=== PATIENT | female | born 1990 | race African-American/Black ===

== ENCOUNTER 2016-11-01 17:05 | Emergency (ER) ==
[2016-11-01 17:51] LABS: URINE SOURCE CLEAN CATCH
[2016-11-01 18:03] LABS: BILIRUBIN URINE NEGATIVE (NEGATIVE); BLOOD URINE NEGATIVE (NEGATIVE); CLARITY CLEAR (CLEAR); COLOR YELLOW; GLUCOSE URINE NEGATIVE (NEGATIVE); LEUKOCYTES URINE 1+ (NEGATIVE); NITRITE URINE NEGATIVE (NEGATIVE); PH URINE 6.5; PROTEIN URINE TRACE mg/dL (NEGATIVE); SP GRAVITY URINE 1.025; UROBILINOGEN URINE 1+(1 mg/dL)
--- NOTE | 2016-11-01 18:10 | PROVIDER DOCUMENTATION ---
HPI-Female /OB/Breast - General Source: reports: patient - History of Present Illness-Female /OB Does patient report she is ?: Yes Location of complaint: reports: other (pelvic) Radiation: reports: back Quality of Pain: reports: aching Onset/Duration: reports: other (1 month) Timing: reports: still present Context/Activities at Onset: reports: none Related Symptoms: reports: pelvic pain, other (lower back pain) Associated Symptoms: reports: nausea Similar Symptoms Previously?: Yes Recently seen or treated by another doctor?: No - LMP/ History Menstrual Status: currently : 3 Para: 2 : 0 <Helena Maldonado - Last Filed: 11/01/16 20:55> <Che Thompson - Last Filed: 11/02/16 06:57> - General Chief Complaint: Abdominal Pain Stated Complaint: 15 WKS PREG/ABD PAIN Time Seen by Provider: 11/01/16 17:54 Allergies/Adverse Reactions: Patient Allergies Allergy/AdvReac Type Severity Reaction Status Date / Time Penicillins Allergy Severe SHORTNESS Verified 09/25/16 19:37 OF BREATH Home Medications: Home Medication List Medication Instructions Recorded Confirmed Last Taken Type Ondansetron [Zofran] 8 mg PO DAILY 10/28/14 10/28/14 10/28/14 History Ondansetron Odt [Zofran 8Mg Odt] 8 mg PO Q8H PRN PRN #20 tablet 09/25/16 Unknown Rx Nitrofurantoin Monohyd/M-Cryst 100 mg PO BID #20 capsule 11/01/16 Unknown Rx [Macrobid 100 mg Capsule] - History of Present Illness-Female /OB Nature of Presenting Problem: 26 year old F presents to the ED with a cc of pelvic pain and lower back pain with an onset of 1 month ago. PT states that she has had some yellowish/brown discharge mixed with some blood. PT states that she is 15 weeks . ( Helena Maldonado) Review of Systems - Adult - REVIEW OF SYSTEMS - ADULT Constitutional: denies: chills, fever Eyes: reports: no symptoms reported Ears, Nose, Mouth & Throat: reports: no symptoms reported Cardiovascular: denies: chest pain, palpitations Respiratory: denies: cough, shortness of breath Gastrointestinal: reports: nausea. denies: vomiting Genitourinary: denies: dysuria, flank pain Musculoskeletal: reports: back pain. denies: neck pain Integumentary: reports: no symptoms reported Neurological: reports: headache/migraines. denies: dizziness/vertigo Psychiatric: reports: no symptoms reported Endocrine: reports: no symptoms reported Hematologic/Lymphatic: reports: no symptoms reported Allergic/Immunologic: reports: no symptoms reported All Other Systems: Reviewed and Negative <Helena Maldonado - Last Filed: 11/01/16 20:55> - REVIEW OF SYSTEMS - ADULT Constitutional: reports: fever <Che Thompson - Last Filed: 11/02/16 06:57> Past History - Adult - PAST MEDICAL HISTORY-ADULT Review of Records: reports: Nursing Assessment Review, Medications Reviewed Major Childhood Illnesses: reports: denies history Cardiovascular: reports: denies history Respiratory: reports: denies history Gastrointestinal: reports: denies history Obstetrical/Gynecological: reports: denies history. denies: ectopic Genitourinary: reports: denies history Musculoskeletal: reports: denies history Neurological: reports: denies history Endocrine/Immune: reports: denies history Other Conditions: reports: denies history - PRIOR SURGERIES/PROCEDURES Surgical/Procedure History: reports: none - IMMUNIZATION STATUS Childhood Immunizations: See Nurse Assessment Flu Vaccine: See Nurse Assessment - FAMILY HISTORY Family History: reviewed, not pertinent - SOCIAL HISTORY Smoking: non-smoker Substance Use: none/never Alcohol Use Frequency: never <Helena Maldonado - Last Filed: 11/01/16 20:55> Physical Exam-General - PHYSICAL EXAM-ADULT Initial Vital Signs Reviewed: Yes - CONSTITUTIONAL General Appearance: appears well, alert, no apparent distress - RESPIRATORY Respiratory: chest non-tender, lungs clear, normal breath sounds - CARDIOVASCULAR Cardiovascular: normal peripheral pulses, regular rate, rhythm, no edema - GASTROINTESTINAL (ABDOMEN) Abdominal Exam: normal bowel sounds, soft, tenderness (LLQ) - MUSCULOSKELETAL Back Exam: no CVA tenderness - SKIN Integumentary: normal color, normal turgor, warm/dry - PSYCHIATRIC Psych/Mental Status: normal mood/affect, normal thought content, normal thought process, oriented x 3 <Helena Maldonado - Last Filed: 11/01/16 20:55> Progress - ULTRASOUND (By Radiology) 1 US Study: Transvaginal Impression: Normal (15 weeks 4 days. NAFISA April 21, 2017. EFW 0lbs. 5 oz. viable IUP. FHR-167 BPM. no free fluid, cercix closed, Normal REAL. Rt ovarian cyst- 3.1x3.8x2.7 cm-Dr. Azar- radiologist) <Helena Maldonado - Last Filed: 11/01/16 20:55> - CHANGE OF SHIFT REPORT (ED Provider) Report Given and Care Transferred to:: [facility]red Time of Transfer: 20:00 Items Pending: Ultrasound Results Tentative Impression of Patient: stable <Che Thompson - Last Filed: 11/02/16 06:57> Departure <Helena Maldonado - Last Filed: 11/01/16 20:55> - Departure Time of Disposition Order: 21:00 Certified Medical Emergency: Emergent <Che Thompson - Last Filed: 11/02/16 06:57> - Departure DIAGNOSIS: UTI (urinary tract infection) Qualifiers: Urinary tract infection type: site unspecified Hematuria presence: without hematuria Qualified Code(s): N39.0 - Urinary tract infection, site not specified Normal IUP (intrauterine ) on ultrasound Qualifiers: Trimester: second trimester Qualified Code(s): Z34.92 - Encounter for supervision of normal , unspecified, second trimester Disposition: HOME 01 Condition: Stable Additional Instructions: ED Follow Up Instructions: You have been treated by a care provider in the Emergency Department. These instructions are being provided to you so you can have an understanding of how to care for yourself upon discharge. Upon discharge from the Emergency Department, you are responsible for making arrangements for follow-up care by a physician of your choice. Take all prescribed medications as directed. Return to the Emergency Department immediately for any new or worsening symptoms. You may call the Physician Referral phone number at [phone] to obtain a list of Physicians who are taking new patients. Prescriptions: Nitrofurantoin Monohyd/M-Cryst [Macrobid 100 mg Capsule] 100 mg PO BID #20 capsule Referrals: Blu Jovel MD [STAFF PHYSICIAN] - None,PCP [Primary Care Provider] - Lakisha Mathew MD [STAFF PHYSICIAN] - Forms: Return to School/Parent Work Instructions: Nitrofurantoin tablets or capsules, and Urinary Tract Infection Attestation - Scribe Verification/Attestation Scribe:: Helena Maldonado Acting as Scribe for:: Che Thompson Scribe documention review:: This chart was documented by a scribe and accurately reflects the service the provider performed and the decisions made by the provider. <Helena Maldonado - Last Filed: 11/01/16 20:55> - Physician/ ROJAS Attestation Patient care was provided by Advanced Practice Provider:: Yes Advanced Practice Provider:: Che Thompson Advanced Practice Provider documentation review:: The Mid-level provider documentation, treatment plan and medical decision making was reviewed by the physician who agrees with all treatment and medical decision making by the P. <Che Thompson - Last Filed: 11/02/16 06:57> Physician Attestation - Physician Attestation I, the provider, attest to the following statement:: Che Thompson Physician documentation Attestation:: This documentation recorded by the scribe accurately reflects the service I personally performed and the decisions made by me. <Helena Maldonado - Last Filed: 11/01/16 20:55>
[2016-11-01 18:24] LABS: URINE CRYSTAL CA OXALATE PRESENT /HPF; URINE CULTURE PL NEEDED? YES; URINE EPITHELIAL CELLS <10 /HPF (<10)
[2016-11-01 18:31] LABS: MANUAL DIFF NEEDED? NO
[2016-11-01 18:32] LABS: BASO% 0.3 % (0.0-0.8); EOS# 0.19 X1000 (0.0-0.7); EOS% 2.5 % (0.0-10.0); HEMATOCRIT 30.4 % (37.0-47.0); HEMOGLOBIN 10.8 g/dL (12.0-16.0); IMM GRAN# 0.01 X1000 (0.0-0.04); IMM GRAN% 0.1 % (0.0-0.5); LYMPH# 1.71 X1000 (1.2-3.4); LYMPH% 22.8 % (20.5-51.1); MCH 30.3 PG (27-31); MCHC 35.5 g/dL (33-37); MCV 85.2 FL (81-99); MONO# 0.66 X1000 (0.11-0.59); MONO% 8.8 % (1.7-9.3); MPV 10.1 FL (7.4-10.4); NEUT% 65.5 % (42.2-75.2); PLT 187 X1000 (130-400); RBC 3.57 XMIL (4.2-5.4)
[2016-11-01 21:15] VITALS: BP 101/69
--- NOTE | 2016-11-02 08:19 | Diag Imaging Result Document ---
PROCEDURE NAME: US OBS COMPLETE > 14 WKS - 11/01/2016 OB ULTRASOUND: FINDINGS: There is a 2.7 cm right ovarian cyst. There is no evidence of free fluid. There is a viable intrauterine gestation with a heart rate of 167 beats per minute. The placenta is posterior. There is no evidence of placenta previa and the cervical os is closed. Based on multiple parameters, estimated gestational age is 15 weeks 4 days +/-8 days by ultrasound which is not significantly at odds with the clinical assessment based on LMP which indicated an NAFISA of 04/16/2017. The amniotic fluid volume is within normal limits. There are no apparent anatomic abnormalities. IMPRESSION: Normal viable intrauterine gestation. Right ovarian cyst.
== END 2016-11-01 21:15 | disposition home or self-care (01) ==
LOC: P.ED 17:05
DX: O23.42 Unspecified infection of urinary tract in pregnancy, second trimester (principal); O34.83 Maternal care for other abnormalities of pelvic organs, third trimester; N83.201 Unspecified ovarian cyst, right side; O26.892 Other specified pregnancy related conditions, second trimester; M54.5 Low back pain; R51 Headache; R10.32 Left lower quadrant pain; Z3A.15 15 weeks gestation of pregnancy; Z79.899 Other long term (current) drug therapy
CPT/HCPCS: 76805; 81001; 81025; 84702; 85025; 86900; 86901; 87088

== ENCOUNTER 2017-04-01 15:55 | Inpatient (IN) ==
[2017-04-01 16:31] LABS: URINE SOURCE VOIDED
[2017-04-01 16:41] LABS: BILIRUBIN URINE NEGATIVE (NEGATIVE); BLOOD URINE NEGATIVE (NEGATIVE); CLARITY CLEAR (CLEAR); COLOR YELLOW; GLUCOSE URINE NEGATIVE (NEGATIVE); LEUKOCYTES URINE TRACE (NEGATIVE); NITRITE URINE NEGATIVE (NEGATIVE); PH URINE 6.5; PROTEIN URINE TRACE mg/dL (NEGATIVE); SP GRAVITY URINE 1.015; UROBILINOGEN URINE 1+(1 mg/dL)
[2017-04-01] MEDS ORDERED: LR 1,000 ML IV SCH (16:57)
[2017-04-01] MEDS ORDERED: ZOFRAN IV PRN (16:57)
[2017-04-01] MEDS ORDERED: PITOCIN 30 UNITS/LR 30 UNITS/500 ML IV.SOLN IV SCH (16:57)
[2017-04-01] MEDS ORDERED: STADOL IV PRN (16:57)
[2017-04-01] MEDS ORDERED: REGLAN PO ONE (16:57)
[2017-04-01] MEDS ORDERED: PEPCID PO ONE (16:57)
[2017-04-01] MEDS ORDERED: PEPCID IV PRN (16:57)
[2017-04-01] MEDS ORDERED: TYLENOL PO PRN (16:57)
[2017-04-01] MEDS ORDERED: PEPCID PO PRN (16:57)
[2017-04-01] MEDS ORDERED: SODIUM CHLORIDE 0.9% INJ SCH (17:00)
[2017-04-01] MEDS ORDERED: FENTANYL-BUPIV-NS 2 MCG-0.1% 200 ML EPIDURAL PRN (17:25)
[2017-04-01 17:56] LABS: MANUAL DIFF NEEDED? NO
[2017-04-01 18:01] LABS: BASO% 0.1 % (0.0-0.8); EOS% 1.4 % (0.0-10.0); HEMATOCRIT 30.3 % (37.0-47.0); HEMOGLOBIN 10.3 g/dL (12.0-16.0); IMM GRAN# 0.08 X1000 (0.0-0.04); IMM GRAN% 0.5 % (0.0-0.5); LYMPH# 1.82 X1000 (1.2-3.4); LYMPH% 12.4 % (20.5-51.1); MCH 30.4 PG (27-31); MCV 89.4 FL (81-99); MONO# 1.46 X1000 (0.11-0.59); MONO% 9.9 % (1.7-9.3); MPV 11.1 FL (7.4-10.4); NEUT% 75.7 % (42.2-75.2); PLT 176 X1000 (130-400); RBC 3.39 XMIL (4.2-5.4)
[2017-04-01] MEDS ORDERED: MARCAINE 0.25% PF INJ ONE (21:55)
[2017-04-01] MEDS ORDERED: MARCAINE 0.25% PF ONE (21:58)
[2017-04-01] MEDS ORDERED: PHENERGAN IV ONE (22:48)
[2017-04-01] MEDS ORDERED: SODIUM CHLORIDE 0.9% INJ ONE (22:48)
[2017-04-02] MEDS: PITOCIN 20 UNITS/LR 20 UNITS/1,000 ML IV.SOLN IV SCH ×2 (00:30→03:15)
[2017-04-02] MEDS ORDERED: M-M-R II VACCINE SUBQ ONE (03:48)
[2017-04-02] MEDS ORDERED: HYDROXYZINE PO PRN (03:48)
[2017-04-02] MEDS ORDERED: PITOCIN IM PRN (03:48)
[2017-04-02] MEDS ORDERED: BOOSTRIX VACCINE IM ONE (03:48)
[2017-04-02] MEDS ORDERED: XYLOCAINE-MPF 1% INJ PRN (03:48)
[2017-04-02] MEDS ORDERED: BENADRYL IV PRN (03:48)
[2017-04-02] MEDS ORDERED: CYTOTEC PO PRN (03:48)
[2017-04-02] MEDS ORDERED: HYDROXYZINE IM PRN (03:48)
[2017-04-02] MEDS ORDERED: BENADRYL PO PRN (03:48)
[2017-04-02] MEDS ORDERED: MINERAL OIL PO PRN (03:48)
[2017-04-02] MEDS ORDERED: AMBIEN PO PRN (03:48)
[2017-04-02] MEDS ORDERED: PERI MEDS (DERMOPLAST/NUPERCAINAL/TUCKS) MISC PRN (03:48)
[2017-04-02] MEDS ORDERED: PITOCIN 30 UNITS/LR 30 UNITS/500 ML IV.SOLN IV ONE (03:48)
--- NOTE | 2017-04-02 04:59 | OPERATIVE NOTE ---
PROCEDURE DATE: 04/01/2017 PREDELIVERY DIAGNOSES: 1. Intrauterine at 36 weeks. 2. Premature rupture of membranes. 3. labor. 4. History of labor. POSTDELIVERY DIAGNOSES: 1. Intrauterine at 36 weeks. 2. Premature rupture of membranes. 3. labor. 4. History of labor. 5. Nuchal cord without compression. PHYSICIAN: Blu Jovel MD ANESTHESIA: Epidural with Dr. Montoya. FINDINGS: I do not have weight or Apgars at this time. The cord was 3 vessels. Placenta spontaneous, intact. Mild primary midline laceration. No repair. ESTIMATED BLOOD LOSS: 100 mL. PROCEDURE IN DETAIL: Please refer to Ms. Lawson's records. She was admitted this afternoon with ruptured membranes at 3:15 this afternoon. She was augmented with Pitocin, received epidural for anesthesia. She reached complete cervical dilatation. Began pushing. Soon after crowned, at which point the bed was broken down. She has prepped and draped. Continued pushing. She delivered a viable male infant, occipitoanterior, over an intact perineum. Once head was delivered, nuchal cord x1 was reduced with some difficulty, then shoulders and the rest of the body delivered without difficulty. The was placed on mother's abdomen. Cord was doubly clamped and cut. Care of infant was taken over by nursery personnel. Cord blood was obtained and 3 vessels were noted. Gentle traction on the cord resulted in delivery of the placenta after approximately 2 minutes. It was inspected and found to be intact. Inspection of the vagina and perineum did not reveal any repairable lacerations. There were no clots or foreign material in the vagina on vaginal sweep. Estimated blood loss 100 mL. All counts were correct. Expect routine . cc: Blu Jovel MD [facility]
[2017-04-02] MEDS: MOTRIN PO PRN ×2 (05:28→18:21)
[2017-04-02] MEDS: NORCO-5 PO PRN (05:28)
[2017-04-02] MEDS: ICAR-C PO SCH (09:27)
[2017-04-02] MEDS: NORCO-10 PO PRN ×2 (09:30→18:21)
[2017-04-02] MEDS: PERICOLACE PO SCH (20:42)
[2017-04-03 05:56] LABS: MANUAL DIFF NEEDED? NO
[2017-04-03 06:14] LABS: BASO% 0.2 % (0.0-0.8); EOS# 0.37 X1000 (0.0-0.7); HEMATOCRIT 29.2 % (37.0-47.0); HEMOGLOBIN 9.5 g/dL (12.0-16.0); IMM GRAN# 0.07 X1000 (0.0-0.04); IMM GRAN% 0.6 % (0.0-0.5); LYMPH# 2.64 X1000 (1.2-3.4); LYMPH% 21.4 % (20.5-51.1); MCH 29.7 PG (27-31); MCHC 32.5 g/dL (33-37); MCV 91.3 FL (81-99); MONO# 1.36 X1000 (0.11-0.59); MPV 10.7 FL (7.4-10.4); NEUT% 63.8 % (42.2-75.2); PLT 155 X1000 (130-400)
[2017-04-03] MEDS: MOTRIN PO PRN ×2 (06:18→19:01)
[2017-04-03] MEDS: NORCO-10 PO PRN (06:18)
[2017-04-03] MEDS: ICAR-C PO SCH (10:54)
[2017-04-03] MEDS: NORCO-5 PO PRN (19:01)
[2017-04-03] MEDS: PERICOLACE PO SCH (19:59)
[2017-04-04 08:01] VITALS: BP 106/76
[2017-04-04] MEDS: ICAR-C PO SCH (09:00)
[2017-04-04] MEDS: MOTRIN PO PRN (09:00)
== END 2017-04-04 11:20 | disposition home or self-care (01) ==
LOC: P.OPLD 15:55 → P.LD 16:00 → P.WC 04-03 10:58
PROVIDERS: ADMIT Obstetrics & Gynecology; ATTEND Obstetrics & Gynecology